=== PATIENT | male | born 1985 | race Caucasian/White ===

== ENCOUNTER 2022-11-29 15:14 | Emergency (ER) | payer OTHER ==
[2022-11-29] MEDS ORDERED: Tetracaine 0.5% PF 4 ML BOT ONE (15:33)
[2022-11-29] MEDS ORDERED: Fluorescein Opthalmic Strip ONE (15:33)
[2022-11-29] MEDS ORDERED: Boostrix 0.5 ML (Tdap) VIAL (>/=7 yrs of age) ONE (16:10)
[2022-11-29] MEDS ORDERED: CEFAZOLIN 2 GM VIAL ONE (16:10)
[2022-11-29] MEDS ORDERED: Ketorolac Tromethamine 30 MG/ML VIAL ONE (16:29)
[2022-11-29] MEDS ORDERED: Morphine 4 MG/ML VIAL ONE ×3 (16:29→18:33)
[2022-11-29 16:42] LABS: ALT (SGPT) 27 U/L (8-55); AST (SGOT) 23 U/L (5-34); Albumin 4.3 g/dL (3.5-5.0); Alkaline Phosphatase 51 U/L (40-110); Anion Gap 15 mmol/L (10-20); BUN (Urea Nitrogen) 15 mg/dL (8.9-20.6); Bilirubin, Total 0.5 mg/dL (0.2-1.2); Calc. Creatinine Clearance 0 mL/min (70-130); Calcium 9.4 mg/dL (7.8-10.44); Carbon Dioxide 28 mmol/L (22-29); Chloride 100 mmol/L (98-107); Estimated GFR 85; Globulin 2.8 g/dL (2.4-3.5); Glucose 100 mg/dL (70-105); Potassium 3.8 mmol/L (3.5-5.1); Protein, Total 7.1 g/dL (6.0-8.3); Sodium 139 mmol/L (136-145)
[2022-11-29 16:47] LABS: #Basophils 0.1 10x3/uL (0.0-0.2); #Eosinphils 0.1 10x3/uL (0.0-0.5); #Neutrophils 10.5 10x3/uL (1.5-8.4); %Basophils 0.8 % (0.0-2.0); %Eosinophils 0.8 % (0.0-6.0); %Lymphocytes 19.7 % (18.0-47.0); %Monocytes 6.5 % (0.0-10.0); %Neutrophils 71.2 % (40.0-75.0); Hemoglobin 17.2 g/dL (13.5-17.5); Mean Corpuscular HGB CONC 32.6 g/dL (32.0-36.0); Mean Corpuscular Hemoglobin 30.1 pg (27.0-33.0); Mean Corpuscular Volume 92.3 fl (81.2-95.1); Mean Platelet Volume 11.5 fl (7.4-10.4); Platelet Count 248 10x3/uL (150-450); RBC Distribution Width 13.6 % (11.5-14.5); Red Blood Cell (RBC) Count 5.71 10x6/uL (4.32-5.72); White Blood Cell (WBC) Count 14.7 10x3/uL (3.5-10.5)
== END 2022-11-29 18:35 | disposition short-term general hospital (02) ==
LOC: CSHERS 15:14
DX: S05.62XA Penetrating wound without foreign body of left eyeball, initial encounter (principal); H21.02 Hyphema, left eye; D72.829 Elevated white blood cell count, unspecified; E78.5 Hyperlipidemia, unspecified; I10 Essential (primary) hypertension; Z23 Encounter for immunization
CPT/HCPCS: 70480; 80053; 85025; 90471; 90715; 96365; 96375; 96376; J1885; J2270

== ENCOUNTER 2023-06-11 16:15 | Day surgery (SDC) | payer OTHER ==
[2023-06-11] MEDS ORDERED: Morphine 4 MG/ML VIAL ONE ×2 (16:55→17:17)
[2023-06-11] MEDS ORDERED: CEFAZOLIN 2 GM VIAL ONE (18:25)
[2023-06-11] MEDS ORDERED: fentaNYL 50 mcg/mL 1 mL Vial ONE (18:50)
[2023-06-11] MEDS ORDERED: Lidocaine 2% PF 5 ML VIAL ONE (18:50)
[2023-06-11] MEDS ORDERED: Dexamethasone 4 mg/ml Vial ONE (18:50)
[2023-06-11] MEDS ORDERED: Ondansetron PF 4 MG/2 ML Vial ONE (18:50)
[2023-06-11] MEDS ORDERED: PROPOFOL 20 ML ONE ×2 (18:50→19:29)
[2023-06-11] MEDS ORDERED: Glucagon 1 MG/ML KIT ONE (19:26)
[2023-06-11] MEDS ORDERED: Iopamidol 0 ML ONE (19:26)
== END 2023-06-11 20:51 | disposition home or self-care (01) ==
LOC: CSHERS 16:15 → CSHSDC/OP 19:24
PROVIDERS: ATTEND Urology
PROC: 0T778DZ Dilation of Left Ureter with Intraluminal Device, Via Natural or Artificial Opening Endoscopic (ICD-10-PCS; principal; 2023-06-11)
DX: N20.1 Calculus of ureter (principal); E78.5 Hyperlipidemia, unspecified; I10 Essential (primary) hypertension; K58.9 Irritable bowel syndrome, unspecified; M19.90 Unspecified osteoarthritis, unspecified site; Z98.890 Other specified postprocedural states; Z79.899 Other long term (current) drug therapy
CPT/HCPCS: 51600; 74430; C2625; J1100; J1611; J2001; J2270; J2405; J2704; J3010; Q9967

== ENCOUNTER 2023-06-13 15:34 | Emergency (ER) | payer OTHER ==
[2023-06-13 16:17] LABS: Bilirubin Neg (Negative); Blood, Urine 250 (Negative); Glucose, Urine (Dipstick) Normal (Negative); Ketone, Urine Negative (Negative); Leukocyte 100 (Negative); Nitrite Negative (Negative); Protein, Urine (Dipstick) 100 mg/dl (Neg-Trace); Urobilinogen Normal mg/dL (Less than 2)
[2023-06-13 16:19] LABS: Clarity Bloody (Clear)
[2023-06-13 16:52] LABS: CAUTI Indications for Culture Acute Hematuria; RBC/HPF Greater than 50 HPF (0-3); Squamous Epithelial 0-3 HPF (0-3)
[2023-06-13 16:53] LABS: Bacteria/HPF 1+ HPF (None Seen)
[2023-06-13 16:55] LABS: Urine Culture Reflex No No
== END 2023-06-13 17:45 | disposition home or self-care (01) ==
LOC: CSHERS 15:34
DX: R31.0 Gross hematuria (principal); F17.290 Nicotine dependence, other tobacco product, uncomplicated; I10 Essential (primary) hypertension; Z96.0 Presence of urogenital implants
CPT/HCPCS: 81001; 99283

== ENCOUNTER 2024-08-01 12:15 | Emergency (ER) | payer OTHER | END 2024-08-01 13:25 | disposition home or self-care (01) | LOC: CSHERS 12:15 | DX: H66.91 Otitis media, unspecified, right ear (principal); I10 Essential (primary) hypertension; F17.290 Nicotine dependence, other tobacco product, uncomplicated | CPT/HCPCS: 99283 ==